=== PATIENT | male | born 1950 | race Caucasian/White ===

== ENCOUNTER 2016-12-31 18:37 | Emergency (ER) | payer MEDICARE, OTHER ==
[2016-12-31 18:50] VITALS: BP 155/77
--- NOTE | 2016-12-31 19:14 | ED Physician Documentation ---
History of Present Illness - Stated complaint Stated Complaint: LIP BLEEDING - Chief complaint Chief Complaint: Heent - History obtained from History obtained from: Patient - History of Present Illness Timing: Today Pain level max: 0 Pain level now: 0 Improved by: pressure Worsened by: chewing on his lip - Additonal information Additional information: states chews on his lip regularly and had bleeding today. Now resolved. Patient is not on anticoagulants Review of Systems Constitutional: denies: Fever Neurologic: denies: Syncope PD PAST MEDICAL HISTORY - Past Medical History Cardiovascular: Hypertension, High cholesterol Respiratory: Sleep apnea Endocrine/Autoimmune: None GI: None : None HEENT: None Psych: None Musculoskeletal: None Derm: Other - Past Surgical History Ortho: Arthroscopic surgery Derm: Skin cancer surgery - Present Medications Home Medications: Ambulatory Orders Medication Instructions Recorded Confirmed Aspirin [Adult Low Dose Aspirin EC] 81 mg PO DAILY 03/07/16 12/31/16 Atorvastatin [Lipitor] 20 mg pe PO DAILY 03/07/16 12/31/16 Chlorthalidone 0.5 tab PO BID 03/07/16 12/31/16 Cyanocobalamin (Vitamin B-12) 1,000 mcg PO DAILY 03/07/16 12/31/16 [B-12] Flaxseed Oil [[place]-3 Flaxseed Oil] 1,000 mg PO DAILY 03/07/16 12/31/16 Lisinopril 20 mg PO DAILY 03/07/16 12/31/16 Metoprolol Succinate 100 mg PO DAILY 03/07/16 12/31/16 Multivitamin [Multivitamins] 1 each PO DAILY 03/07/16 12/31/16 Amlodipine Besylate 10 mg PO DAILY 03/08/16 12/31/16 - Allergies Allergies/Adverse Reactions: Allergies Allergy/AdvReac Type Severity Reaction Status Date / Time No Known Drug Allergies Allergy Verified 12/31/16 18:50 - Social History Does the pt smoke?: Yes Smoking Status: Former smoker - Family History Family history: reports: Non contributory - Immunizations Immunizations are current?: Yes Immunizations: TDAP current <10years PD ED PE NORMAL - Vitals Vital signs reviewed: Yes - General General: Alert and oriented X 3, No acute distress - HEENT HEENT: PERRL (normal conjunctiva), Moist mucous membranes, Pharynx benign, Other (small abrasion to the lower lip. no bleeding) - Neck Neck: Supple, no meningeal sign - Derm Derm: Warm and dry - Neuro Neuro: Alert and oriented X 3 - Psych Psych: Normal mood, Normal affect Results - Vitals Vitals: Vital Signs - 24 hr 12/31/16 18:40 Temperature 36.6 C Heart Rate 60 Respiratory 16 Rate Blood Pressure 155/77 H O2 Saturation 99 Oxygen O2 Source Room air PD MEDICAL DECISION MAKING - ED course Complexity details: considered differential, d/w patient ED course: Patient with an abrasion to the lower lip. No active bleeding. Patient requests something to prevent rebleeding, Dermabond placed on the wound. We will have him follow-up with his doctor for further evaluation and care. Patient counseled regarding signs and symptoms for which I believe and urgent re -evaluation would be necessary. Patient with good understanding of and agreement to plan and is comfortable going home at this time This document was made in part using voice recognition software. While efforts are made to proofread this document, sound alike and grammatical errors may occur. Departure - Departure Disposition: 01 Home, Self Care Clinical Impression: Abrasion of lip Qualifiers: Encounter type: initial encounter Qualified Code(s): S00.511A - Abrasion of lip , initial encounter Condition: Good Instructions: ED Abrasion Follow-Up: your,doctor in 1 week [Other] Comments: Return if you worsen. Discharge Date/Time: 12/31/16 19:16
== END 2016-12-31 19:16 | disposition home or self-care (01) ==
LOC: ED 18:37
DX: S00.511A Abrasion of lip, initial encounter (principal); X58.XXXA Exposure to other specified factors, initial encounter; I10 Essential (primary) hypertension; Z87.891 Personal history of nicotine dependence; Z79.82 Long term (current) use of aspirin
CPT/HCPCS: 99281; 99283

== ENCOUNTER 2020-02-03 07:24 | Emergency (ER) | payer MEDICARE, OTHER ==
--- NOTE | 2020-02-03 07:35 | ED Physician Documentation ---
PD HPI HEENT - Stated complaint Stated Complaint: NOSE BLEED - Chief complaint Chief Complaint: Heent - History obtained from History obtained from: Patient - History of Present Illness Timing - onset: Yesterday Timing - details: Abrupt onset, Now resolved (He had had resolution of his nosebleed with Rhino Rocket yesterday in the ER and is here as directed for recheck and removal) Location: Nose (right side) Associated symptoms: No: Fever, Congestion, Facial swelling Recently seen: Emergency Dept (yesterday for nosebleed) Review of Systems Constitutional: denies: Fever, Chills Nose: denies: Sinus pressure / pain PD PAST MEDICAL HISTORY - Past Medical History Cardiovascular: Hypertension, High cholesterol Respiratory: Sleep apnea Endocrine/Autoimmune: None GI: None : None HEENT: None Psych: None Musculoskeletal: None Derm: Other - Past Surgical History Ortho: Arthroscopic surgery Derm: Skin cancer surgery - Present Medications Home Medications: Ambulatory Orders Medication Instructions Recorded Confirmed Aspirin [Adult Low Dose Aspirin EC] 81 mg PO DAILY 03/07/16 12/31/16 Atorvastatin [Lipitor] 20 mg pe PO DAILY PM 03/07/16 12/31/16 Chlorthalidone 0.5 tab PO BID 03/07/16 12/31/16 Cyanocobalamin (Vitamin B-12) 1,000 mcg PO DAILY 03/07/16 12/31/16 [B-12] Flaxseed Oil [[place]-3 Flaxseed Oil] 1,000 mg PO DAILY 03/07/16 12/31/16 Metoprolol Succinate 100 mg PO DAILY 03/07/16 12/31/16 Multivitamin [Multivitamins] 1 each PO DAILY 03/07/16 12/31/16 lisinopriL [Lisinopril] 40 mg PO DAILY 03/07/16 12/31/16 Amlodipine Besylate 5 mg PO DAILY 03/08/16 12/31/16 Hydrochlorothiazide 12.5 PO DAILY 02/02/20 - Allergies Allergies/Adverse Reactions: Allergies Allergy/AdvReac Type Severity Reaction Status Date / Time No Known Drug Allergies Allergy Verified 12/31/16 18:50 - Social History Does the pt smoke?: Yes Smoking Status: Current every day smoker Does the pt have substance abuse?: No - Immunizations Immunizations are current?: Yes Immunizations: TDAP current <10years PD ED PE NORMAL - Vitals Vital signs reviewed: Yes - General General: Alert and oriented X 3, No acute distress, Well developed/nourished - HEENT HEENT: Other (Rhino Rocket present on the right side. Its clear looking without any blood saturation. Posterior pharynx is clear. The left nostril is without any blood) Results - Vitals Vitals: Vital Signs - 24 hr 02/03/20 07:29 Temperature 36.5 C Heart Rate 70 Respiratory 16 Rate Blood Pressure 181/80 H O2 Saturation 99 Oxygen O2 Source Room air PD MEDICAL DECISION MAKING - ED course Complexity details: considered differential (The Rhino Rocket is removed without any signs of bleeding. There is a little bit of rawness in the right anterior. Murocel expanding foam is placed just for the rest of the day.), d/w patient Departure - Departure Disposition: 01 Home, Self Care Clinical Impression: Anterior epistaxis Condition: Stable Record reviewed to determine appropriate education?: Yes Instructions: Nosebleed Comments: Leave the expanding foam in through the day today and remove it gently later today or this evening before bed. Return if recurrent bleeding.
[2020-02-03 08:04] VITALS: BP 179/96
== END 2020-02-03 08:04 | disposition home or self-care (01) ==
LOC: ED 07:24
DX: R04.0 Epistaxis (principal); F17.200 Nicotine dependence, unspecified, uncomplicated
CPT/HCPCS: 99281; 99283